=== PATIENT | male | born 1985 | race Hispanic/Latino ===

== ENCOUNTER → 2017-12-29 | Outpatient (CLI) | payer BC ==
--- NOTE | 2017-12-29 12:36 | Diagnostic Imaging Report ---
EXAMINATION: Renal ultrasound. CLINICAL HISTORY :Abdominal pain COMPARISON: <None available.> TECHNIQUE: Grayscale and color Doppler evaluation of the kidneys and bladder was performed in transverse and longitudinal planes. DISCUSSION: RIGHT KIDNEY: The right kidney measures 11.7 cm in length and shows normal renal cortical echogenicity. No hydronephrosis, shadowing calculi or solid mass lesions. LEFT KIDNEY: The left kidney measures 12 cm in length and shows normal renal cortical echogenicity. No hydronephrosis, shadowing calculi or solid mass lesions. BLADDER: Unremarkable. Right and left ureteral jets are identified. Prostate: 3.3 x 2.8 x 3.3 cm, estimated volume 16 cc IMPRESSION: Unremarkable sonographic appearance of the kidneys. Signed by: Dr. Joe Aguiar M.D. on 12/29/2017 12:33 PM
== END ==
LOC: US 11:50
PROVIDERS: ATTEND Internal Medicine
DX: R10.9 Unspecified abdominal pain (principal)
CPT/HCPCS: 76770

== ENCOUNTER → 2018-03-09 | Outpatient (CLI) | payer BC ==
--- NOTE | 2018-03-09 11:52 | Diagnostic Imaging Report ---
PROCEDURE:PELVIC ULTRASOUND COMPARISON:None. INDICATIONS:LEFT LOWER QUADRANT PAIN TECHNIQUE: Grayscale transverse and sagittal transabdominal were obtained of the pelvis. FINDINGS:No mass or cyst is seen in the pelvis. Urinary bladder appears unremarkable. Left urinary jet is visualized. No right urinary jet identified. Bladder prevoid volume is 906 cc. Post void volume is 46 cc. Prostate volume is 25 cc. CONCLUSION: Normal pelvic sonogram. Tyshawn Carr D.O. Dictated by: Tyshawn Carr D.O. on 03/09/2018 at 12:02 Electronically approved by: Tyshawn Carr D.O. on 03/09/2018 at 12:02
--- NOTE | 2018-03-09 12:13 | Diagnostic Imaging Report ---
PROCEDURE:ABDOMINAL ULTRASOUND COMPARISON:None. INDICATIONS:LEFT LOWER QUADRANT PAIN TECHNIQUE: Valle-scale and color sonographic images were obtained of the abdomen in transverse and sagittal planes. FINDINGS: Liver: Measures 14.4 cm in length in right midclavicular line. Increased echogenicity. No masses. Main portal vein: Measures 0.8 cm with normal hepatopetal flow Gallbladder: No stones or biliary sludge. Common Bile Duct: Measures 0.3 cm. Sonographic Gomez's sign: Negative Right kidney: Measures 11.5 x 5.8 x 6.9 cm. No stones, mass or hydronephrosis. Left kidney: Measures 11.7 x 7.3 x 6.0 cm. No stones, mass or hydronephrosis. Spleen: Appearing normal with measurements of 11.7 x 4.9 x 4.7 cm. Pancreas: The visualized portions are unremarkable. Inferior vena cava: Not optimally visualized due to overlying bowel gas. Aorta: Within normal limits Ascites: None CONCLUSION: Increased echogenicity of the liver. Tyshawn Carr D.O. Dictated by: Tyshawn Carr D.O. on 03/09/2018 at 12:23 Electronically approved by: Tyshawn Carr D.O. on 03/09/2018 at 12:23
== END ==
LOC: US 09:02
PROVIDERS: ATTEND Internal Medicine
DX: R10.32 Left lower quadrant pain (principal); R10.2 Pelvic and perineal pain
CPT/HCPCS: 76700; 76856